=== PATIENT | male | born 1980 | race Caucasian/White ===

== ENCOUNTER → 2016-11-10 | Outpatient (CLI) | payer BC, MEDICAID ==
[~2016-11-10] MED LIST: AMOXICILLIN 50500 MG PO; AMOXICILLIN 8751 TAB PO; ASPIRIN 81M81 MG/TA2 PO; CEPHALEXIN500 M1 PO; CETIRIZINE PO; COREG 6.256.25 MG/TA PO; COREG12.5 MG PO; COREG25 MG PO; DEMADEX 20MG20 M1 PO; DOXYCYCLINE 10100 MG PO; FLEXERIL 1010 MG/TAB PO; FLEXERIL10 MG PO; LASIX 20MG TABL20 MG PO; LASIX 40MG TABL40 MG PO; LASIX40 MG PO; LISINOPRIL10 MG PO; LORTAB 5/500 501 TAB PO; NORCO 325 MG-51 TAB PO; NORCO 325 MG-7.1 TAB PO; PHENERGAN W/CO120 M1 PO; PRINIVIL10 MG PO; PRINIVIL20 MG PO; PRINIVIL5 MG PO; TYLENOL 325MG325 MG PO; VENTOLIN0.09 MG IH; ZANTAC 150MG T150 MG PO; ZANTAC PO; ZOFRAN 4MG T4 MG/TAB PO; [UNRECOGNIZED DRUG - OTHER]
[2016-11-10 10:45] LABS: BASO % 0.3 % (0.0-2.0); EOS # 0.4 (0.0-0.7); EOS % 4.6 % (0-4.0); GRAN # 6.3 (1.4-6.5); GRAN % 71.6 % (42.2-75.2); HEMATOCRIT 38.3 % (42.0-52.0); HEMOGLOBIN 12.4 g/dl (13.5-18.0); INR 2.4 (0.8-3.0); LYMPH # 1.4 (1.2-3.4); LYMPH % 15.8 % (20.0-51.0); MEAN CELL VOLUME 81 fl (80.0-100.0); MEAN CORPUSCULAR HEMOGLOBIN 26 pg (27.0-31.0); MEAN CORPUSCULAR HGB CONC 32 g/dl (33.0-37.0); MONO # 0.7 (0.1-0.6); MONO % 7.6 % (1.7-9.3); PLATELET COUNT 250 K/mm3 (130-400); PROTHROMBIN TIME 26.8 SECONDS (9.7-12.8); RED BLOOD COUNT 4.75 M/mm3 (4.20-5.60); WHITE BLOOD COUNT 8.7 K/mm3 (4.8-10.8)
[2016-11-10 10:50] LABS: CALCIUM 9.7 mg/dL (8.4-10.2); CREATININE, serum 1.22 mg/dL (0.66-1.25)
== END ==
LOC: COL.LAB 09:05
DX: I50.22 Chronic systolic (congestive) heart failure (principal)

== ENCOUNTER → 2016-11-17 | Outpatient (CLI) | payer BC, MEDICAID ==
[2016-11-17 12:55] LABS: BASO # 0.1 (0.0-0.2); BASO % 0.6 % (0.0-2.0); EOS # 0.3 (0.0-0.7); EOS % 3.1 % (0-4.0); GRAN # 6.6 (1.4-6.5); GRAN % 77.8 % (42.2-75.2); HEMATOCRIT 39.9 % (42.0-52.0); HEMOGLOBIN 13.1 g/dl (13.5-18.0); MEAN CELL VOLUME 80 fl (80.0-100.0); MEAN CORPUSCULAR HEMOGLOBIN 26 pg (27.0-31.0); MEAN CORPUSCULAR HGB CONC 33 g/dl (33.0-37.0); MEAN PLATELET VOLUME 10.4 fl (7.4-10.4); MONO # 0.5 (0.1-0.6); MONO % 6.1 % (1.7-9.3); PLATELET COUNT 255 K/mm3 (130-400); RED BLOOD COUNT 4.99 M/mm3 (4.20-5.60); REDCELL DISTRIBUTION WIDTH-CV 15.3 % (11.5-14.5); WHITE BLOOD COUNT 8.5 K/mm3 (4.8-10.8)
[2016-11-17 13:07] LABS: CALCIUM 9.7 mg/dL (8.4-10.2); CREATININE, serum 1.33 mg/dL (0.66-1.25); POTASSIUM 3.9 mmol/L (3.4-5.0)
[2016-11-17 13:09] LABS: PROTHROMBIN TIME 37.2 SECONDS (9.7-12.8)
[2016-11-17 13:38] LABS: INR 3.2 (0.8-3.0)
== END ==
LOC: COL.LAB 10:42
DX: I50.22 Chronic systolic (congestive) heart failure (principal)

== ENCOUNTER → 2016-12-01 | Outpatient (CLI) | payer BC, MEDICAID ==
[2016-12-01 13:09] LABS: BASO % 0.4 % (0.0-2.0); EOS # 0.3 (0.0-0.7); EOS % 3.1 % (0-4.0); GRAN # 6.6 (1.4-6.5); GRAN % 77.6 % (42.2-75.2); HEMATOCRIT 41.1 % (42.0-52.0); HEMOGLOBIN 13.3 g/dl (13.5-18.0); LYMPH # 1.1 (1.2-3.4); LYMPH % 12.6 % (20.0-51.0); MEAN CELL VOLUME 80 fl (80.0-100.0); MEAN CORPUSCULAR HEMOGLOBIN 26 pg (27.0-31.0); MEAN CORPUSCULAR HGB CONC 32 g/dl (33.0-37.0); MONO # 0.5 (0.1-0.6); MONO % 6.1 % (1.7-9.3); PLATELET COUNT 269 K/mm3 (130-400); RED BLOOD COUNT 5.14 M/mm3 (4.20-5.60); WHITE BLOOD COUNT 8.5 K/mm3 (4.8-10.8)
[2016-12-01 13:13] LABS: CALCIUM 9.5 mg/dL (8.4-10.2); CREATININE, serum 1.4 mg/dL (0.66-1.25); INR 1.9 (0.8-3.0); POTASSIUM 4.2 mmol/L (3.4-5.0); PROTHROMBIN TIME 21.7 SECONDS (9.7-12.8)
== END ==
LOC: COL.LAB 10:30
DX: I50.22 Chronic systolic (congestive) heart failure (principal)

== ENCOUNTER → 2016-12-08 | Outpatient (CLI) | payer BC, MEDICAID ==
[2016-12-08 10:58] LABS: BASO % 0.3 % (0.0-2.0); EOS # 0.2 (0.0-0.7); EOS % 1.6 % (0-4.0); GRAN # 9.9 (1.4-6.5); GRAN % 81.2 % (42.2-75.2); HEMATOCRIT 40.3 % (42.0-52.0); HEMOGLOBIN 13.3 g/dl (13.5-18.0); LYMPH # 1.2 (1.2-3.4); LYMPH % 9.5 % (20.0-51.0); MEAN CELL VOLUME 80 fl (80.0-100.0); MEAN CORPUSCULAR HEMOGLOBIN 27 pg (27.0-31.0); MEAN CORPUSCULAR HGB CONC 33 g/dl (33.0-37.0); MEAN PLATELET VOLUME 9.9 fl (7.4-10.4); MONO # 0.9 (0.1-0.6); MONO % 7.1 % (1.7-9.3); PLATELET COUNT 258 K/mm3 (130-400); RED BLOOD COUNT 5.02 M/mm3 (4.20-5.60); REDCELL DISTRIBUTION WIDTH-CV 13.4 % (11.5-14.5); WHITE BLOOD COUNT 12.2 K/mm3 (4.8-10.8)
[2016-12-08 11:00] LABS: INR 1.7 (0.8-3.0); PROTHROMBIN TIME 19.4 SECONDS (9.7-12.8)
[2016-12-08 11:05] LABS: CALCIUM 9.7 mg/dL (8.4-10.2); CREATININE, serum 1.4 mg/dL (0.66-1.25); POTASSIUM 3.4 mmol/L (3.4-5.0)
== END ==
LOC: COL.LAB 08:53
DX: I50.22 Chronic systolic (congestive) heart failure (principal)

== ENCOUNTER → 2016-12-15 | Outpatient (CLI) | payer BC, MEDICAID ==
[2016-12-15 11:03] LABS: BASO % 0.3 % (0.0-2.0); EOS # 0.2 (0.0-0.7); GRAN # 7.9 (1.4-6.5); GRAN % 79.3 % (42.2-75.2); HEMATOCRIT 37.5 % (42.0-52.0); HEMOGLOBIN 12.3 g/dl (13.5-18.0); LYMPH # 1.2 (1.2-3.4); LYMPH % 11.8 % (20.0-51.0); MEAN CELL VOLUME 80 fl (80.0-100.0); MEAN CORPUSCULAR HEMOGLOBIN 26 pg (27.0-31.0); MEAN CORPUSCULAR HGB CONC 33 g/dl (33.0-37.0); MEAN PLATELET VOLUME 9.3 fl (7.4-10.4); MONO # 0.6 (0.1-0.6); MONO % 6.3 % (1.7-9.3); PLATELET COUNT 255 K/mm3 (130-400); RED BLOOD COUNT 4.69 M/mm3 (4.20-5.60); REDCELL DISTRIBUTION WIDTH-CV 13.6 % (11.5-14.5); WHITE BLOOD COUNT 9.9 K/mm3 (4.8-10.8)
[2016-12-15 11:07] LABS: PROTHROMBIN TIME 22.6 SECONDS (9.7-12.8)
[2016-12-15 11:19] LABS: CREATININE, serum 1.09 mg/dL (0.66-1.25); POTASSIUM 3.9 mmol/L (3.4-5.0)
== END ==
LOC: COL.LAB 09:02
DX: I50.22 Chronic systolic (congestive) heart failure (principal)

== ENCOUNTER → 2016-12-22 | Outpatient (CLI) | payer BC, MEDICAID ==
[2016-12-22 10:53] LABS: CALCIUM 9.2 mg/dL (8.4-10.2); CREATININE, serum 1.04 mg/dL (0.66-1.25); POTASSIUM 3.9 mmol/L (3.4-5.0)
[2016-12-22 10:55] LABS: PROTHROMBIN TIME 22.3 SECONDS (9.7-12.8)
[2016-12-22 11:04] LABS: BASO % 0.3 % (0.0-2.0); EOS # 0.2 (0.0-0.7); EOS % 1.9 % (0-4.0); GRAN # 8.5 (1.4-6.5); GRAN % 81.7 % (42.2-75.2); HEMATOCRIT 39.1 % (42.0-52.0); LYMPH # 1.1 (1.2-3.4); LYMPH % 10.7 % (20.0-51.0); MEAN CELL VOLUME 80 fl (80.0-100.0); MEAN CORPUSCULAR HEMOGLOBIN 27 pg (27.0-31.0); MEAN CORPUSCULAR HGB CONC 33 g/dl (33.0-37.0); MEAN PLATELET VOLUME 9.5 fl (7.4-10.4); MONO # 0.5 (0.1-0.6); MONO % 5.1 % (1.7-9.3); PLATELET COUNT 249 K/mm3 (130-400); RED BLOOD COUNT 4.89 M/mm3 (4.20-5.60); REDCELL DISTRIBUTION WIDTH-CV 13.4 % (11.5-14.5); WHITE BLOOD COUNT 10.4 K/mm3 (4.8-10.8)
== END ==
LOC: COL.LAB 10:02
DX: I50.22 Chronic systolic (congestive) heart failure (principal)

== ENCOUNTER → 2016-12-29 | Outpatient (CLI) | payer BC, MEDICAID ==
[2016-12-29 09:22] LABS: INR 2.2 (0.8-3.0); PROTHROMBIN TIME 25.1 SECONDS (9.7-12.8)
[2016-12-29 09:28] LABS: BASO % 0.3 % (0.0-2.0); EOS # 0.2 (0.0-0.7); EOS % 1.8 % (0-4.0); GRAN % 83.6 % (42.2-75.2); HEMATOCRIT 40.9 % (42.0-52.0); HEMOGLOBIN 13.2 g/dl (13.5-18.0); LYMPH # 0.9 (1.2-3.4); LYMPH % 7.4 % (20.0-51.0); MEAN CELL VOLUME 80 fl (80.0-100.0); MEAN CORPUSCULAR HEMOGLOBIN 26 pg (27.0-31.0); MEAN CORPUSCULAR HGB CONC 32 g/dl (33.0-37.0); MEAN PLATELET VOLUME 9.6 fl (7.4-10.4); MONO # 0.8 (0.1-0.6); MONO % 6.6 % (1.7-9.3); PLATELET COUNT 286 K/mm3 (130-400); REDCELL DISTRIBUTION WIDTH-CV 13.3 % (11.5-14.5); WHITE BLOOD COUNT 11.9 K/mm3 (4.8-10.8)
[2016-12-29 09:40] LABS: CREATININE, serum 1.1 mg/dL (0.66-1.25); POTASSIUM 3.7 mmol/L (3.4-5.0)
== END ==
LOC: COL.LAB 08:51
DX: I50.22 Chronic systolic (congestive) heart failure (principal)

== ENCOUNTER 2017-01-02 16:23 | Outpatient (RCR) | payer BC, MEDICAID ==
[~2017-01-02 16:23] MED LIST changes: -DEMADEX 20MG20 M1 PO
[2017-01-27] MEDS ORDERED: NORCO 325 MG-51 TAB PO (00:46)
[2017-03-18] MEDS ORDERED: DEMADEX 20MG20 M1 PO (13:04)
== END 2017-02-01 | disposition home or self-care (01) ==
LOC: COL.CR
DX: I50.22 Chronic systolic (congestive) heart failure (principal); I42.9 Cardiomyopathy, unspecified; Z95.810 Presence of automatic (implantable) cardiac defibrillator; I21.3 ST elevation (STEMI) myocardial infarction of unspecified site

== ENCOUNTER 2017-01-26 21:07 | Emergency (ER) | payer BC, MEDICAID ==
[~2017-01-26] VITALS: Ht 185.4 cm; Wt 114.1 kg
[2017-01-26 21:09] VITALS: BP 121/69; TEMP 98.7
[2017-01-26 22:10] LABS: BASO % 0.3 % (0.0-2.0); EOS # 0.1 (0.0-0.7); EOS % 1.2 % (0-4.0); GRAN # 6.6 (1.4-6.5); GRAN % 75.8 % (42.2-75.2); LYMPH % 11.4 % (20.0-51.0); MEAN CELL VOLUME 79 fl (80.0-100.0); MEAN CORPUSCULAR HGB CONC 32 g/dl (33.0-37.0); MEAN PLATELET VOLUME 9.4 fl (7.4-10.4); MONO # 0.9 (0.1-0.6); MONO % 10.4 % (1.7-9.3); PLATELET COUNT 189 K/mm3 (130-400); WHITE BLOOD COUNT 8.7 K/mm3 (4.8-10.8)
[2017-01-26 22:24] LABS: HEMATOCRIT 35.6 % (42.0-52.0); HEMOGLOBIN 11.4 g/dl (13.5-18.0); MEAN CORPUSCULAR HEMOGLOBIN 25 pg (27.0-31.0)
[2017-01-26 22:27] LABS: INR 2.8 (0.8-3.0); PROTHROMBIN TIME 31.8 SECONDS (9.7-12.8)
[2017-01-26 22:30] LABS: PARTIAL THROMBOPLASTIN TIME 41.5 SECONDS (26.0-37.0)
[2017-01-26 22:44] LABS: ADJUSTED CALCIUM 9.2 mg/dL (8.4-10.2); ALBUMIN 3.5 gm/dL (3.5-5.0); BILIRUBIN,TOTAL 0.8 mg/dL (0.0-1.0); CALCIUM 8.8 mg/dL (8.4-10.2); CREATININE, serum 0.98 mg/dL (0.66-1.25); POTASSIUM 3.7 mmol/L (3.4-5.0); TOTAL PROTEIN 6.9 gm/dL (6.4-8.2)
[2017-01-27] MEDS ORDERED: NORCO 325 MG-51 TAB PO (00:46)
[2017-01-27 00:57] VITALS: PULSE 71
[2017-03-18] MEDS ORDERED: DEMADEX 20MG20 M1 PO (13:04)
== END 2017-01-27 01:01 | disposition home or self-care (01) ==
LOC: COL.ER 21:07
PROVIDERS: Emergency Medicine
DX: J02.9 Acute pharyngitis, unspecified (principal); R13.10 Dysphagia, unspecified; R59.0 Localized enlarged lymph nodes; I50.9 Heart failure, unspecified; I42.9 Cardiomyopathy, unspecified; Z76.82 Awaiting organ transplant status
CPT/HCPCS: J1170; Q9967

== ENCOUNTER 2017-07-15 12:26 | Outpatient (RCR) | payer MEDICAID ==
[~2017-07-15 12:26] MED LIST changes: +DEMADEX 20MG20 M1 PO
== END 2017-09-27 | disposition home or self-care (01) ==
LOC: COL.CR
DX: I42.8 Other cardiomyopathies (principal); I50.42 Chronic combined systolic (congestive) and diastolic (congestive) heart failure; E66.01 Morbid (severe) obesity due to excess calories; F41.8 Other specified anxiety disorders; G47.33 Obstructive sleep apnea (adult) (pediatric)

== ENCOUNTER → 2019-06-20 | Outpatient (CLI) | payer MEDICAID ==
[2019-06-20 09:24] LABS: CREATININE, serum 1.69 (0.66-1.25); POTASSIUM 3.3 mmol/L (3.4-5.0)
[2019-06-20 09:44] LABS: INR 1.8 (0.8-3.0); PROTHROMBIN TIME 21.6 SECONDS (9.7-12.8)
== END ==
LOC: COL.LAB 08:36
DX: I49.01 Ventricular fibrillation (principal); I27.20 Pulmonary hypertension, unspecified; Z95.810 Presence of automatic (implantable) cardiac defibrillator

== ENCOUNTER → 2019-06-24 | Outpatient (CLI) | payer MEDICAID ==
[2019-06-24 09:37] LABS: CREATININE, serum 1.74 (0.66-1.25); INR 1.8 (0.8-3.0); POTASSIUM 4.1 mmol/L (3.4-5.0); PROTHROMBIN TIME 21.2 SECONDS (9.7-12.8)
== END ==
LOC: COL.LAB 08:59
DX: I49.01 Ventricular fibrillation (principal); I27.20 Pulmonary hypertension, unspecified; Z95.810 Presence of automatic (implantable) cardiac defibrillator

== ENCOUNTER → 2019-07-04 | Outpatient (CLI) | payer MEDICAID ==
[2019-07-04 10:08] LABS: INR 2.3 (0.8-3.0); PROTHROMBIN TIME 27.1 SECONDS (9.7-12.8)
== END ==
LOC: COL.LAB 08:29
DX: I49.01 Ventricular fibrillation (principal); I27.20 Pulmonary hypertension, unspecified; Z95.810 Presence of automatic (implantable) cardiac defibrillator

== ENCOUNTER → 2019-07-18 | Outpatient (CLI) | payer MEDICAID ==
[2019-07-18 09:12] LABS: INR 3.1 (0.8-3.0); PROTHROMBIN TIME 37.6 SECONDS (9.7-12.8)
== END ==
LOC: COL.LAB 08:28
DX: I27.20 Pulmonary hypertension, unspecified (principal); I49.01 Ventricular fibrillation; Z95.810 Presence of automatic (implantable) cardiac defibrillator

== ENCOUNTER 2019-08-29 08:11 | Emergency (ER) | payer MEDICARE, MEDICAID ==
[~2019-08-29] VITALS: Ht 185.4 cm; Wt 172.7 kg
[2019-08-29 08:16] VITALS: BP 118/71; TEMP 98.6
[2019-08-29] MEDS ORDERED: PROAIR HFA0.09 MG/AC IH (08:23)
[2019-08-29] MEDS ORDERED: PACERONE400 MG PO (08:24)
[2019-08-29] MEDS ORDERED: CLARITIN 1010 MG/TAB (08:24)
[2019-08-29] MEDS ORDERED: BUMEX2 MG PO (08:26)
[2019-08-29] MEDS ORDERED: LANOXIN 0.120.125 MG PO (08:27)
[2019-08-29] MEDS ORDERED: NATURAL IRON65 MG (08:28)
[2019-08-29] MEDS ORDERED: INSPRA50 MG (08:28)
[2019-08-29] MEDS ORDERED: ZESTRIL 5MG5 MG PO (08:29)
[2019-08-29] MEDS ORDERED: JARDIANCE25 (08:29)
[2019-08-29] MEDS ORDERED: MEXITIL 150MG150 MG PO (08:30)
[2019-08-29] MEDS ORDERED: TOPROL XL 25MG25 MG PO (08:30)
[2019-08-29] MEDS ORDERED: MAG-OX 400400 MG/TAB PO (08:30)
[2019-08-29] MEDS ORDERED: OZEMPIC0.25 MG/0. SQ (08:31)
[2019-08-29] MEDS ORDERED: PROTONIX 40MG T40 MG PO (08:31)
[2019-08-29] MEDS ORDERED: MIRALAX PA17 GM/Dose PO (08:32)
[2019-08-29] MEDS ORDERED: K-DUR20 MEQ PO (08:32)
[2019-08-29] MEDS ORDERED: RT SPIRIVA18 MCG IH (08:33)
[2019-08-29] MEDS ORDERED: ZOLOFT 100MG100 MG PO (08:33)
[2019-08-29] MEDS ORDERED: DESYREL 100MG100 MG PO (08:33)
[2019-08-29] MEDS ORDERED: COUMADIN 5MG5 MG/TAB PO (08:34)
[2019-08-29] MEDS ORDERED: CLEOCIN HCL300 MG PO (10:28)
[2019-08-29] MEDS ORDERED: NORCO 325 MG-51 TAB PO (10:28)
[2019-08-29 11:15] VITALS: PULSE 61
== END 2019-08-29 11:15 | disposition home or self-care (01) ==
LOC: COL.ER 08:11
DX: K04.7 Periapical abscess without sinus (principal); I50.9 Heart failure, unspecified; Z87.891 Personal history of nicotine dependence; Z90.89 Acquired absence of other organs; Z79.01 Long term (current) use of anticoagulants
CPT/HCPCS: J2405; J3010

== ENCOUNTER → 2019-09-19 | Outpatient (CLI) | payer MEDICARE, MEDICAID ==
[~2019-09-19] MED LIST changes: +BUMEX2 MG PO; +CLARITIN 1010 MG/TAB; +CLEOCIN HCL300 MG PO; +COUMADIN 5MG5 MG/TAB PO; +DESYREL 100MG100 MG PO; +INSPRA50 MG; +JARDIANCE25; +K-DUR20 MEQ PO; +LANOXIN 0.120.125 MG PO; +MAG-OX 400400 MG/TAB PO; +MEXITIL 150MG150 MG PO; +MIRALAX PA17 GM/Dose PO; +NATURAL IRON65 MG; +OZEMPIC0.25 MG/0. SQ; +PACERONE400 MG PO; +PROAIR HFA0.09 MG/AC IH; +PROTONIX 40MG T40 MG PO; +RT SPIRIVA18 MCG IH; +TOPROL XL 25MG25 MG PO; +ZESTRIL 5MG5 MG PO; +ZOLOFT 100MG100 MG PO
[2019-09-19 14:11] LABS: INR 6.2 (0.8-3.0); PROTHROMBIN TIME 77.2 SECONDS (9.7-12.8)
== END ==
LOC: COL.LAB 08:23
DX: I49.01 Ventricular fibrillation (principal); I27.20 Pulmonary hypertension, unspecified; Z95.810 Presence of automatic (implantable) cardiac defibrillator

== ENCOUNTER → 2019-09-20 | Outpatient (CLI) | payer MEDICARE, MEDICAID ==
[2019-09-20 10:38] LABS: PROTHROMBIN TIME 73.5 SECONDS (9.7-12.8)
== END ==
LOC: COL.LAB 09:40
DX: I82.712 Chronic embolism and thrombosis of superficial veins of left upper extremity (principal); I42.8 Other cardiomyopathies; I49.01 Ventricular fibrillation; E66.01 Morbid (severe) obesity due to excess calories; Z68.43 Body mass index [BMI] 50.0-59.9, adult; I27.20 Pulmonary hypertension, unspecified; Z95.810 Presence of automatic (implantable) cardiac defibrillator

== ENCOUNTER → 2019-09-21 | Outpatient (CLI) | payer MEDICARE, MEDICAID ==
[2019-09-21 09:15] LABS: INR 4.7 (0.8-3.0)
[2019-09-21 09:42] LABS: PROTHROMBIN TIME 58.1 SECONDS (9.7-12.8)
== END ==
LOC: COL.LAB 08:41
DX: I82.712 Chronic embolism and thrombosis of superficial veins of left upper extremity (principal); I42.8 Other cardiomyopathies; Z79.01 Long term (current) use of anticoagulants

== ENCOUNTER → 2019-09-23 | Outpatient (CLI) | payer MEDICARE, MEDICAID ==
[2019-09-23 08:41] LABS: INR 2.2 (0.8-3.0); PROTHROMBIN TIME 26.7 SECONDS (9.7-12.8)
== END ==
LOC: COL.LAB 08:06
PROVIDERS: Internal Medicine Cardiovascular Disease
DX: I42.8 Other cardiomyopathies (principal); I82.712 Chronic embolism and thrombosis of superficial veins of left upper extremity

== ENCOUNTER → 2019-10-07 | Outpatient (CLI) | payer MEDICARE, MEDICAID ==
[2019-10-07 09:08] LABS: INR 4.9 (0.8-3.0)
== END ==
LOC: COL.LAB 08:39
PROVIDERS: Internal Medicine Cardiovascular Disease
DX: I49.01 Ventricular fibrillation (principal); Z79.01 Long term (current) use of anticoagulants

== ENCOUNTER → 2019-10-14 | Outpatient (CLI) | payer MEDICARE, MEDICAID ==
[2019-10-14 08:55] LABS: INR 3.2 (0.8-3.0); PROTHROMBIN TIME 38.8 SECONDS (9.7-12.8)
[2019-10-14 09:09] LABS: CALCIUM 9.1 mg/dL (8.4-10.2); CREATININE, serum 1.68 (0.66-1.25); MAGNESIUM 2.4 mg/dL (1.6-2.3); POTASSIUM 3.9 mmol/L (3.4-5.0)
== END ==
LOC: COL.LAB 08:21
PROVIDERS: Internal Medicine Cardiovascular Disease
DX: I49.01 Ventricular fibrillation (principal); Z79.01 Long term (current) use of anticoagulants

== ENCOUNTER → 2019-10-24 | Outpatient (CLI) | payer MEDICARE, MEDICAID ==
[2019-10-24 09:03] LABS: INR 4.3 (0.8-3.0)
== END ==
LOC: COL.LAB 08:33
PROVIDERS: Internal Medicine Cardiovascular Disease
DX: I49.01 Ventricular fibrillation (principal); Z79.01 Long term (current) use of anticoagulants

== ENCOUNTER → 2019-11-21 | Outpatient (CLI) | payer MEDICARE, MEDICAID ==
[2019-11-21 11:41] LABS: INR 2.9 (0.8-3.0); PROTHROMBIN TIME 34.7 SECONDS (9.7-12.8)
[2019-11-21 11:44] LABS: CALCIUM 8.9 mg/dL (8.4-10.2); CREATININE, serum 1.84 (0.66-1.25); MAGNESIUM 2.5 mg/dL (1.6-2.3); POTASSIUM 4.3 mmol/L (3.4-5.0)
== END ==
LOC: COL.LAB 11:13
PROVIDERS: Family Medicine
DX: I42.8 Other cardiomyopathies (principal); I50.42 Chronic combined systolic (congestive) and diastolic (congestive) heart failure; Z79.01 Long term (current) use of anticoagulants

== ENCOUNTER → 2020-01-24 | Outpatient (CLI) | payer MEDICARE, MEDICAID ==
[2020-01-24 08:59] LABS: INR 2.2 (0.8-3.0); PROTHROMBIN TIME 24.7 SECONDS (9.7-12.8)
[2020-01-24 09:44] LABS: CALCIUM 8.9 mg/dL (8.4-10.2); CREATININE, serum 1.93 (0.66-1.25); POTASSIUM 4.2 mmol/L (3.4-5.0)
== END ==
LOC: COL.LAB 08:10
PROVIDERS: Internal Medicine Cardiovascular Disease
DX: I50.42 Chronic combined systolic (congestive) and diastolic (congestive) heart failure (principal)

== ENCOUNTER → 2020-02-29 | Outpatient (CLI) | payer MEDICARE, MEDICAID ==
[2020-02-29 07:58] LABS: CALCIUM 8.9 mg/dL (8.4-10.2); CREATININE, serum 1.89 (0.66-1.25); MAGNESIUM 2.4 mg/dL (1.6-2.3); POTASSIUM 3.9 mmol/L (3.4-5.0)
== END ==
LOC: COL.LAB 07:17 → ZCOL.LAB 07:17
PROVIDERS: Family Medicine
DX: I50.42 Chronic combined systolic (congestive) and diastolic (congestive) heart failure (principal); I42.8 Other cardiomyopathies; Z79.01 Long term (current) use of anticoagulants

== ENCOUNTER → 2020-04-19 | Outpatient (CLI) | payer MEDICARE, MEDICAID ==
[~2020-04-19] MED LIST changes: -CLARITIN 1010 MG/TAB; +CLARITIN 1010 MG/TAB PO; +COLCRYS0.6 MG PO; -INSPRA50 MG; +INSPRA50 MG PO; -JARDIANCE25; +JARDIANCE25 PO
[2020-04-19 08:40] LABS: ALBUMIN 4.4 gm/dL (3.5-5.0); BILIRUBIN,TOTAL 1.7 mg/dL (0.0-1.0); CALCIUM 8.7 mg/dL (8.4-10.2); CREATININE, serum 1.8 (0.66-1.25); POTASSIUM 3.7 mmol/L (3.4-5.0)
[2020-04-19 08:41] LABS: INR 2.1 (0.8-3.0); PROTHROMBIN TIME 23.1 SECONDS (9.7-12.8)
[2020-04-19 09:10] LABS: THYROID STIMULATING HORMONE 5.66 uIU/mL (0.465-4.680)
== END ==
LOC: COL.LAB
DX: I42.8 Other cardiomyopathies (principal)

== ENCOUNTER 2020-04-21 09:04 | Emergency (ER) | payer MEDICARE, MEDICAID ==
[~2020-04-21] VITALS: Ht 185.4 cm; Wt 172.7 kg
[~2020-04-21 09:04] MED LIST changes: -COLCRYS0.6 MG PO
[2020-04-21 09:06] VITALS: BP 110/75; TEMP 97.6
[2020-04-21] MEDS ORDERED: OZEMPIC0.25 MG/0. SQ (09:38)
[2020-04-21 10:29] LABS: BASO % 0.3 % (0.0-2.0); EOS # 0.2 (0.0-0.7); EOS % 2.3 % (0-4.0); GRAN # 8.3 (1.4-6.5); GRAN % 80.2 % (42.2-75.2); HEMATOCRIT 43.3 % (42.0-52.0); HEMOGLOBIN 13.8 g/dl (13.5-18.0); LYMPH % 9.4 % (20.0-51.0); MEAN CELL VOLUME 84 fl (80.0-100.0); MEAN CORPUSCULAR HEMOGLOBIN 27 pg (27.0-31.0); MEAN CORPUSCULAR HGB CONC 32 g/dl (33.0-37.0); MONO # 0.8 (0.1-0.6); MONO % 7.4 % (1.7-9.3); PLATELET COUNT 238 K/mm3 (130-400); RED BLOOD COUNT 5.13 M/mm3 (4.20-5.60); REDCELL DISTRIBUTION WIDTH-CV 15.1 % (11.5-14.5)
[2020-04-21 10:37] LABS: ALBUMIN 3.8 gm/dL (3.5-5.0); BILIRUBIN,TOTAL 1.3 mg/dL (0.0-1.0); CALCIUM 8.2 mg/dL (8.4-10.2); CREATININE, serum 1.76 (0.66-1.25); POTASSIUM 3.8 mmol/L (3.4-5.0); TOTAL PROTEIN 7.1 gm/dL (6.4-8.2); URIC ACID 10.1 mg/dL (3.5-8.5)
[2020-04-21] MEDS ORDERED: COLCRYS0.6 MG PO (10:53)
[2020-04-21] MEDS ORDERED: NORCO 325 MG-7.1 TAB PO (10:53)
[2020-04-21 11:03] VITALS: PULSE 60
== END 2020-04-21 11:03 | disposition home or self-care (01) ==
LOC: COL.ER 09:04
PROVIDERS: Physician Assistant
DX: M79.671 Pain in right foot (principal); M79.89 Other specified soft tissue disorders; E11.9 Type 2 diabetes mellitus without complications; I11.0 Hypertensive heart disease with heart failure; I50.9 Heart failure, unspecified; E66.01 Morbid (severe) obesity due to excess calories; Z87.891 Personal history of nicotine dependence; Z79.84 Long term (current) use of oral hypoglycemic drugs; E78.5 Hyperlipidemia, unspecified; Z79.01 Long term (current) use of anticoagulants; Z68.43 Body mass index [BMI] 50.0-59.9, adult

== ENCOUNTER 2020-05-19 21:08 | Emergency (ER) | payer MEDICARE, MEDICAID ==
[~2020-05-19] VITALS: Ht 185.4 cm; Wt 172.7 kg
[~2020-05-19 21:08] MED LIST changes: +COLCRYS0.6 MG PO
[2020-05-19 23:18] LABS: COLLECTION METHOD CLEAN CATCH
[2020-05-19 23:21] LABS: BASO % 0.5 % (0.0-2.0); EOS % 0.2 % (0-4.0); GRAN # 6.8 (1.4-6.5); HEMATOCRIT 46.3 % (42.0-52.0); HEMOGLOBIN 14.7 g/dl (13.5-18.0); LYMPH # 0.7 (1.2-3.4); LYMPH % 8.3 % (20.0-51.0); MEAN CELL VOLUME 84 fl (80.0-100.0); MEAN CORPUSCULAR HEMOGLOBIN 27 pg (27.0-31.0); MEAN CORPUSCULAR HGB CONC 32 g/dl (33.0-37.0); MEAN PLATELET VOLUME 9.5 fl (7.4-10.4); MONO # 0.8 (0.1-0.6); MONO % 9.4 % (1.7-9.3); PLATELET COUNT 239 K/mm3 (130-400); RED BLOOD COUNT 5.49 M/mm3 (4.20-5.60); REDCELL DISTRIBUTION WIDTH-CV 14.9 % (11.5-14.5)
[2020-05-19 23:24] LABS: MUCOUS Present /lpf; PH 6 (5-8); SQUAMOUS EPITHELIAL None Seen /hpf; URINE APPEARANCE Clear; URINE BACTERIA None Seen /hpf; URINE BILIRUBIN Negative (NEGATIVE); URINE BLOOD Negative (NEGATIVE); URINE COLOR Yellow; URINE GLUCOSE 3+ (NEGATIVE); URINE KETONE Negative (NEGATIVE); URINE LEUKOCYTE ESTERASE Negative (NEGATIVE); URINE NITRATE Negative (NEGATIVE); URINE PROTEIN(semi-quant) Negative (NEGATIVE); URINE RBC None Seen /hpf; URINE UROBILINOGEN Negative (NEGATIVE)
[2020-05-19 23:27] LABS: INR 2.6 (0.8-3.0); PROTHROMBIN TIME 29.6 SECONDS (9.7-12.8)
[2020-05-19 23:31] LABS: ALBUMIN 4.1 gm/dL (3.5-5.0); BILIRUBIN,TOTAL 1.8 mg/dL (0.0-1.0); C-REACTIVE PROTEIN 5.1 mg/dL (0.0-0.9); CALCIUM 8.3 mg/dL (8.4-10.2); CREATININE, serum 1.75 (0.66-1.25); POTASSIUM 3.8 mmol/L (3.4-5.0); TOTAL PROTEIN 7.6 gm/dL (6.4-8.2)
[2020-05-20 02:05] VITALS: BP 110/66; PULSE 80; TEMP 98.5
== END 2020-05-20 02:03 | disposition home or self-care (01) ==
LOC: COL.ER 21:08
PROVIDERS: Nurse Practitioner Primary Care
DX: I50.9 Heart failure, unspecified (principal); I11.0 Hypertensive heart disease with heart failure; E11.9 Type 2 diabetes mellitus without complications; F41.9 Anxiety disorder, unspecified; F32.9 Major depressive disorder, single episode, unspecified; K21.9 Gastro-esophageal reflux disease without esophagitis; J45.909 Unspecified asthma, uncomplicated; Z20.828 Contact with and (suspected) exposure to other viral communicable diseases; Z95.0 Presence of cardiac pacemaker; Z87.891 Personal history of nicotine dependence; Z90.89 Acquired absence of other organs; Z88.3 Allergy status to other anti-infective agents; Z79.01 Long term (current) use of anticoagulants; Z79.4 Long term (current) use of insulin
CPT/HCPCS: Q9967

== ENCOUNTER → 2020-07-27 | Outpatient (CLI) | payer MEDICARE, MEDICAID ==
[2020-07-27 09:43] LABS: INR 4.2 (0.8-3.0)
[2020-07-27 09:52] LABS: CALCIUM 8.7 mg/dL (8.4-10.2); CREATININE, serum 1.82 (0.66-1.25); MAGNESIUM 2.3 mg/dL (1.6-2.3); POTASSIUM 3.9 mmol/L (3.4-5.0)
[2020-07-27 10:44] LABS: PROTHROMBIN TIME 47.4 SECONDS (9.7-12.8)
== END ==
LOC: COL.LAB 08:47
DX: I42.8 Other cardiomyopathies (principal)

== ENCOUNTER → 2020-08-16 | Outpatient (CLI) | payer MEDICARE, MEDICAID ==
[2020-08-16 09:00] LABS: INR 2.5 (0.8-3.0)
[2020-08-16 09:12] LABS: CALCIUM 8.7 mg/dL (8.4-10.2); CREATININE, serum 2.1 (0.66-1.25); MAGNESIUM 2.6 mg/dL (1.6-2.3)
== END ==
LOC: COL.LAB 08:25
PROVIDERS: Internal Medicine Cardiovascular Disease
DX: I42.8 Other cardiomyopathies (principal); I49.01 Ventricular fibrillation; Z79.01 Long term (current) use of anticoagulants

== ENCOUNTER 2020-09-30 14:33 | Inpatient (IN) | payer MEDICARE, MEDICAID ==
[~2020-09-30] VITALS: Ht 185.4 cm; Wt 168.2 kg
[~2020-09-30 14:33] MED LIST changes: +JARDIANCE10 PO; -JARDIANCE25 PO; +OZEMPIC1 MG/0.75 SQ
[2020-09-30 15:54] LABS: BASO % 0.4 % (0.0-2.0); EOS % 0.4 % (0-4.0); GRAN # 9.9 (1.4-6.5); GRAN % 86.3 % (42.2-75.2); HEMATOCRIT 43.4 % (42.0-52.0); HEMOGLOBIN 13.4 g/dl (13.5-18.0); LYMPH # 0.6 (1.2-3.4); LYMPH % 5.3 % (20.0-51.0); MEAN CELL VOLUME 86 fl (80.0-100.0); MEAN CORPUSCULAR HEMOGLOBIN 26 pg (27.0-31.0); MEAN CORPUSCULAR HGB CONC 31 g/dl (33.0-37.0); MEAN PLATELET VOLUME 9.8 fl (7.4-10.4); MONO # 0.8 (0.1-0.6); MONO % 7.3 % (1.7-9.3); PLATELET COUNT 467 K/mm3 (130-400); RED BLOOD COUNT 5.07 M/mm3 (4.20-5.60); REDCELL DISTRIBUTION WIDTH-CV 16.9 % (11.5-14.5)
[2020-09-30 16:15] LABS: ALANINE AMINOTRANSFERASE 33 U/L (4-49); ALBUMIN 3.3 gm/dL (3.5-5.0); ALKALINE PHOSPHATASE 111 U/L (50-136); ANION GAP 9 mmol/L (7-16); AST,SGOT 37 U/L (15-37); BILIRUBIN,TOTAL 1.9 mg/dL (0.0-1.0); BLOOD UREA NITROGEN 26 mg/dL (9-20); CALCIUM 8.5 mg/dL (8.4-10.2); CARBON DIOXIDE 29 mmol/L (22-30); CHLORIDE 100 mmol/L (98-107); CREATININE, serum 1.57 (0.66-1.25); GLUCOSE 126 mg/dL (74-106); POTASSIUM 4.5 mmol/L (3.4-5.0); SODIUM 137 mmol/L (137-145); TOTAL PROTEIN 7.2 gm/dL (6.4-8.2)
[2020-09-30 16:26] LABS: C-REACTIVE PROTEIN 18.5 mg/dL (0.0-0.9); TROPONIN-I < 0.012 ng/mL (0.000-0.035)
[2020-09-30 17:36] LABS: INR 1.9 (0.8-3.0); PROTHROMBIN TIME 21.4 SECONDS (9.7-12.8)
[2020-09-30 18:15] LABS: COLLECTION METHOD CLEAN CATCH
[2020-09-30] MEDS ORDERED: LANCETS MC (18:19)
[2020-09-30 18:47] LABS: PH 6 (5-8); SQUAMOUS EPITHELIAL 0-2 /hpf; URINE APPEARANCE Clear; URINE BACTERIA None Seen /hpf; URINE BILIRUBIN Negative (NEGATIVE); URINE BLOOD Negative (NEGATIVE); URINE COLOR Yellow; URINE GLUCOSE 3+ (NEGATIVE); URINE KETONE Negative (NEGATIVE); URINE LEUKOCYTE ESTERASE Negative (NEGATIVE); URINE NITRATE Negative (NEGATIVE); URINE PROTEIN(semi-quant) Negative (NEGATIVE); URINE RBC 0-2 /hpf; URINE UROBILINOGEN Negative (NEGATIVE)
[2020-09-30 20:16] VITALS: BP 122/72; PULSE 78; TEMP 97.4
--- NOTE | 2020-09-30 20:58 | NUR ---
PATIENT ARRIVED TO FLOOR VIA WHEELCHAIR FROM THE ED. PATIENT ALERT AND ORIENTED AND ON 2L NC. PATIENT ORIENTED TO ROOM. PATIENT REPORTED PAIN IN GROIN AREA. NABIL WOODARD NOTIFIED.
[2020-10-01] VITALS (9 sets, daily range): BP systolic 101–140; BP diastolic 70–98; PULSE 50–86; TEMP 97.3–98.8
[2020-10-01 06:51] LABS: BASO % 0.2 % (0.0-2.0); EOS # 0.1 (0.0-0.7); EOS % 0.9 % (0-4.0); GRAN # 7.9 (1.4-6.5); GRAN % 83.8 % (42.2-75.2); HEMATOCRIT 42.5 % (42.0-52.0); HEMOGLOBIN 13.1 g/dl (13.5-18.0); LYMPH # 0.6 (1.2-3.4); LYMPH % 6.2 % (20.0-51.0); MEAN CELL VOLUME 86 fl (80.0-100.0); MEAN CORPUSCULAR HEMOGLOBIN 27 pg (27.0-31.0); MEAN CORPUSCULAR HGB CONC 31 g/dl (33.0-37.0); MEAN PLATELET VOLUME 9.8 fl (7.4-10.4); MONO # 0.8 (0.1-0.6); MONO % 8.6 % (1.7-9.3); PLATELET COUNT 375 K/mm3 (130-400); RED BLOOD COUNT 4.94 M/mm3 (4.20-5.60)
[2020-10-01 07:05] LABS: ALBUMIN 3.2 gm/dL (3.5-5.0); BILIRUBIN,TOTAL 1.7 mg/dL (0.0-1.0); CREATININE, serum 1.43 (0.66-1.25); MAGNESIUM 2.8 mg/dL (1.6-2.3); POTASSIUM 3.8 mmol/L (3.4-5.0)
--- NOTE | 2020-10-01 08:00 | NUR ---
PATIENT IS A&O. VSS WITH TELE INPLACE. NO C/O N/V. AM BS IS 111, NO SSI REQUIRED. BREAKFAST TRAY AT BEDSIDE. PATIENT TOLERATING AHA/ADA DIET. AM MEDS GIVEN. HEAD TO TOE ASSESSMENT COMPLETE. NOTED DEMINISHED LUNGS SOUNDS. PATIENT HAVING PRODUCTIVE PINK-TINGED SPUTUM, CULTURE SENT. BLOOD CULTURES PENDING. PATIENT REQUIRING 6L TO KEEP SATS IN 90'S. PATIENT IS OBESE AND HAS EXTENSIVE HX INCLUDING CHF, CARDIOMYOPATHY, V-FIBB, DVT & PACER. PATIENT ON CHRONIC COUMADIN. AM LAB PENDING. CARDIOLOGY CONSULTED.
--- NOTE | 2020-10-01 09:36 | NUR ---
Initial visit; Patient thanked Manager Of Disaster Recovery for looking in on him and offering God's blessings and asked that Manager Of Disaster Recovery keep him in her prayers.
[2020-10-01 09:44] LABS: PROTHROMBIN TIME 129.8 SECONDS (9.7-12.8)
[2020-10-01 09:45] LABS: INR 11.3 (0.8-3.0)
--- NOTE | 2020-10-01 09:45 | NUR ---
ECHO AT BEDSIDE.
--- NOTE | 2020-10-01 11:00 | NUR ---
DR.KATZ HOPKINS.
[2020-10-01 12:55] LABS: HEMATOCRIT 44.7 % (42.0-52.0); HEMOGLOBIN 13.8 g/dl (13.5-18.0)
--- NOTE | 2020-10-01 13:00 | NUR ---
COVID-SWAB COMPETED PER OLDERS. PATIENT MOVED TO COVID UNIT WITH ISOLATION PRECAUTIONS INPLACE.
--- NOTE | 2020-10-01 13:30 | NUR ---
LAB CALLED WITH CRITICAL INR OF 12.5. ATTEMPTED TO NOTIFY HOSPIATLIST, NO ANSWER.
--- NOTE | 2020-10-01 13:49 | NUR ---
Circulation Man attempted to contact patient by room phone and cell phone as he is a PUI for COVID at this time. Patient did not answer so SW contacted his , Donna (ph#[phone]) to complete initial intake. Per Donna, patient lives in [place] with his . Donna is not sure who patient's primary care physician is as patient sees so many doctors. Dr. Pitt is listed as patient's PCP. Patient obtains medications from [facility] in [place] with no difficulties. Donna reports patient has a home base for his defibrillator and no other DME. Patient does not normally require oxygen but is currently on six liters. Patient is normally independent with ADLS and plan is to return home. Donna isn't sure if patient has ever done DPOA-[facility] and there is nothing in EMR. ARIELLE will continue to follow for discharge needs.
--- NOTE | 2020-10-01 13:50 | NUR ---
HOSPITALIST NOTIFIED OF REPEAT INR. CALLED PATIENT IN ROOM. PATIENT IS NOW ON ISOLATION FOR PENDING COVID SWAB. CXR WAS REPORTED TO LOOK SUSPICIOUS BY THE RADIOLOGIST. PATIENT CURRENTLY ON 6L OF OXYGEN, NOTED DYSPNEA AT REST AND STILL COUGHING UP BLOOD-TINGED SPUTUM.
[2020-10-01 13:54] LABS: PROTHROMBIN TIME 143.4 SECONDS (9.7-12.8)
[2020-10-01 13:55] LABS: INR 12.5 (0.8-3.0)
--- NOTE | 2020-10-01 15:00 | NUR ---
PATIENT STILL COUGHING A LOT AND STILL WITH PRODUCTIVE PINK-TINGED SPUTUM. STARTED SECOND IV SITE INTO LEFT WRIST. IV BUMEX INFUSING INTO RIGHT AC IV VIA PUMP. OXYGEN AT 6L PER NC. COVID SWAB SENT EARLIER TODAY, SEND OUT.
--- NOTE | 2020-10-01 15:30 | NUR ---
ATTEMPTED TO CALL HOSPITALIST REGARDING FFP. AWAITING RETURN CALL
--- NOTE | 2020-10-01 16:00 | NUR ---
FFP NOW READY. STARTED FFP PER ORDERS.
--- NOTE | 2020-10-01 18:45 | NUR ---
CALLED REPORT TO [facility] FOR[employer] TE[employer] PROFESSOR TO CALL WHEN PATIENT LEAVES VIA EMS.
--- NOTE | 2020-10-01 19:54 | NUR ---
Patient left via EMS to transfer to [facility] on in [place], [place]. Patient V/S stable, A&O x'4, on 6L NC. Transfer packet given to EMS. Previous shift RN Ludy called [facility] with report. This nurse called [facility] to report patient was in route.
--- NOTE | 2020-10-02 11:18 | NUR ---
Patient was transferred to [facility] in [place].
== END 2020-10-01 19:55 | disposition short-term general hospital (02) | DRG 291 ==
LOC: COL.ER 14:33 → MEDICAL 17:45
PROVIDERS: Nurse Practitioner; Physician Assistant; Student in an Organized Health Care Education/Training Program; ADMIT Family Medicine
DX: I13.0 Hypertensive heart and chronic kidney disease with heart failure and stage 1 through stage 4 chronic kidney disease, or unspecified chronic kidney disease (principal); I50.23 Acute on chronic systolic (congestive) heart failure; J18.9 Pneumonia, unspecified organism; J96.01 Acute respiratory failure with hypoxia; Z68.43 Body mass index [BMI] 50.0-59.9, adult; R04.2 Hemoptysis; I42.8 Other cardiomyopathies; K59.00 Constipation, unspecified; D47.3 Essential (hemorrhagic) thrombocythemia; I95.9 Hypotension, unspecified; J45.909 Unspecified asthma, uncomplicated; N18.30 Chronic kidney disease, stage 3 unspecified; E11.22 Type 2 diabetes mellitus with diabetic chronic kidney disease; R04.0 Epistaxis; R79.1 Abnormal coagulation profile; T45.515A Adverse effect of anticoagulants, initial encounter; K21.9 Gastro-esophageal reflux disease without esophagitis; F32.9 Major depressive disorder, single episode, unspecified; E66.01 Morbid (severe) obesity due to excess calories; M10.9 Gout, unspecified; Z20.822 Contact with and (suspected) exposure to COVID-19; Z79.01 Long term (current) use of anticoagulants; Z95.810 Presence of automatic (implantable) cardiac defibrillator; Z87.891 Personal history of nicotine dependence
CPT/HCPCS: 99223-AI; 99233-AI; J0696; J1100; J1940; J3430

== ENCOUNTER → 2020-11-06 | Outpatient (CLI) | payer MEDICARE, MEDICAID ==
[~2020-11-06] MED LIST changes: +ASPIRIN E.C. 8181 MG PO; +LANCETS MC; +LIDODERM 5% PATC1 EA TP; +TYLENOL 500MG500 MG PO
[2020-11-06 08:31] LABS: CALCIUM 8.8 mg/dL (8.4-10.2); CREATININE, serum 1.92 (0.66-1.25); POTASSIUM 3.8 mmol/L (3.4-5.0); PROTHROMBIN TIME 11.5 SECONDS (9.7-12.8)
== END ==
LOC: COL.LAB 07:52
DX: I49.01 Ventricular fibrillation (principal); Z79.01 Long term (current) use of anticoagulants

== ENCOUNTER → 2020-11-14 | Outpatient (CLI) | payer MEDICARE, MEDICAID ==
[2020-11-14 09:24] LABS: CALCIUM 8.8 mg/dL (8.4-10.2); CREATININE, serum 1.5 (0.66-1.25); MAGNESIUM 2.5 mg/dL (1.6-2.3); POTASSIUM 3.5 mmol/L (3.4-5.0)
[2020-11-14 13:05] LABS: INR 1.6 (0.8-3.0); PROTHROMBIN TIME 17.8 SECONDS (9.7-12.8)
== END ==
LOC: COL.LAB 08:23
PROVIDERS: Internal Medicine Cardiovascular Disease
DX: I50.42 Chronic combined systolic (congestive) and diastolic (congestive) heart failure (principal); I42.8 Other cardiomyopathies

== ENCOUNTER → 2020-11-27 | Outpatient (CLI) | payer MEDICARE, MEDICAID ==
[2020-11-27 09:32] LABS: CALCIUM 8.8 mg/dL (8.4-10.2); CREATININE, serum 1.68 (0.66-1.25); MAGNESIUM 2.4 mg/dL (1.6-2.3); POTASSIUM 3.5 mmol/L (3.4-5.0)
[2020-11-27 09:34] LABS: INR 2.4 (0.8-3.0); PROTHROMBIN TIME 26.7 SECONDS (9.7-12.8)
== END ==
LOC: COL.LAB 08:29
DX: I50.42 Chronic combined systolic (congestive) and diastolic (congestive) heart failure (principal); I42.8 Other cardiomyopathies; E11.59 Type 2 diabetes mellitus with other circulatory complications; E66.01 Morbid (severe) obesity due to excess calories; Z86.79 Personal history of other diseases of the circulatory system; Z95.810 Presence of automatic (implantable) cardiac defibrillator; Z79.01 Long term (current) use of anticoagulants; Z79.899 Other long term (current) drug therapy

== ENCOUNTER → 2020-12-25 | Outpatient (CLI) | payer MEDICARE, MEDICAID ==
[2020-12-25 08:56] LABS: INR 2.6 (0.8-3.0); PROTHROMBIN TIME 29.4 SECONDS (9.7-12.8)
[2020-12-25 09:05] LABS: CALCIUM 8.9 mg/dL (8.4-10.2); CREATININE, serum 2.18 (0.66-1.25); MAGNESIUM 2.6 mg/dL (1.6-2.3)
== END ==
LOC: COL.LAB 07:48
DX: I50.42 Chronic combined systolic (congestive) and diastolic (congestive) heart failure (principal); E11.59 Type 2 diabetes mellitus with other circulatory complications; E66.01 Morbid (severe) obesity due to excess calories; I42.8 Other cardiomyopathies; Z79.899 Other long term (current) drug therapy; Z95.810 Presence of automatic (implantable) cardiac defibrillator; Z86.79 Personal history of other diseases of the circulatory system; Z79.01 Long term (current) use of anticoagulants

== ENCOUNTER → 2021-01-15 | Outpatient (CLI) | payer MEDICARE, MEDICAID ==
[2021-01-15 08:40] LABS: CALCIUM 9.2 mg/dL (8.4-10.2); CREATININE, serum 2.67 (0.66-1.25); POTASSIUM 3.7 mmol/L (3.4-5.0)
== END ==
LOC: COL.LAB 08:01
DX: I50.42 Chronic combined systolic (congestive) and diastolic (congestive) heart failure (principal); N18.31 Chronic kidney disease, stage 3a

== ENCOUNTER → 2021-01-18 | Outpatient (CLI) | payer MEDICARE, MEDICAID ==
[2021-01-18 09:08] LABS: CREATININE, serum 1.87 (0.66-1.25); POTASSIUM 3.9 mmol/L (3.4-5.0)
== END ==
LOC: COL.LAB 08:19
DX: N18.31 Chronic kidney disease, stage 3a (principal); I42.8 Other cardiomyopathies

== ENCOUNTER → 2021-01-23 | Outpatient (CLI) | payer MEDICARE, MEDICAID | LOC: COL.LAB 08:15 | DX: N18.31 Chronic kidney disease, stage 3a (principal); I42.8 Other cardiomyopathies ==

== ENCOUNTER → 2021-01-30 | Outpatient (CLI) | payer MEDICARE, MEDICAID ==
[2021-01-30 09:04] LABS: CALCIUM 8.5 mg/dL (8.4-10.2); CREATININE, serum 1.4 (0.66-1.25); POTASSIUM 3.6 mmol/L (3.4-5.0)
== END ==
LOC: COL.LAB 08:01
DX: N18.31 Chronic kidney disease, stage 3a (principal); I42.8 Other cardiomyopathies

== ENCOUNTER → 2021-02-05 | Outpatient (CLI) | payer MEDICARE, MEDICAID ==
[2021-02-05 09:04] LABS: CALCIUM 8.8 mg/dL (8.4-10.2); CREATININE, serum 1.39 (0.66-1.25)
== END ==
LOC: COL.LAB 08:00
PROVIDERS: Family Medicine
DX: N18.31 Chronic kidney disease, stage 3a (principal); I42.8 Other cardiomyopathies

== ENCOUNTER → 2021-02-08 | Outpatient (CLI) | payer MEDICARE, MEDICAID ==
[2021-01-23 08:52] LABS: CALCIUM 8.8 mg/dL (8.4-10.2); CREATININE, serum 1.49 (0.66-1.25); POTASSIUM 3.4 mmol/L (3.4-5.0)
== END | disposition still patient (30) ==
LOC: COL.LAB → COL.CR → COL.LAB 01-18 08:18 → EDSTATUS 01-18 17:00 → COL.CR 01-21 17:03 → EDSTATUS 01-25 16:34 → COL.CR 01-25 17:04 → COL.LAB 12:00
PROVIDERS: Internal Medicine Cardiovascular Disease
DX: I50.42 Chronic combined systolic (congestive) and diastolic (congestive) heart failure (principal); N18.31 Chronic kidney disease, stage 3a

== ENCOUNTER → 2021-05-01 | Outpatient (CLI) | payer MEDICARE, MEDICAID ==
[2021-05-01 09:11] LABS: INR 2.1 (0.8-3.0); PROTHROMBIN TIME 23.1 SECONDS (9.7-12.8)
[2021-05-01 09:19] LABS: CALCIUM 8.4 mg/dL (8.4-10.2); CREATININE, serum 1.85 (0.66-1.25); MAGNESIUM 2.3 mg/dL (1.6-2.3); POTASSIUM 3.9 mmol/L (3.4-5.0)
== END ==
LOC: COL.LAB 08:41
DX: I42.8 Other cardiomyopathies (principal); Z79.01 Long term (current) use of anticoagulants

== ENCOUNTER 2021-05-12 10:40 | Inpatient (IN) | payer MEDICARE, MEDICAID ==
[~2021-05-12] VITALS: Ht 185.4 cm; Wt 188.7 kg
[~2021-05-12 10:40] MED LIST changes: -ASPIRIN E.C. 8181 MG PO; -LIDODERM 5% PATC1 EA TP; -TYLENOL 500MG500 MG PO
[2021-05-12 11:07] LABS: BASO % 0.4 % (0.0-2.0); EOS % 0.1 % (0-4.0); GRAN # 6.5 (1.4-6.5); HEMATOCRIT 42.2 % (42.0-52.0); HEMOGLOBIN 13.1 g/dl (13.5-18.0); LYMPH # 0.6 (1.2-3.4); LYMPH % 7.3 % (20.0-51.0); MEAN CELL VOLUME 89 fl (80.0-100.0); MEAN CORPUSCULAR HEMOGLOBIN 28 pg (27.0-31.0); MEAN CORPUSCULAR HGB CONC 31 g/dl (33.0-37.0); MEAN PLATELET VOLUME 10.3 fl (7.4-10.4); MONO # 0.6 (0.1-0.6); MONO % 7.9 % (1.7-9.3); PLATELET COUNT 213 K/mm3 (130-400); RED BLOOD COUNT 4.73 M/mm3 (4.20-5.60); REDCELL DISTRIBUTION WIDTH-CV 17.2 % (11.5-14.5)
[2021-05-12 11:18] LABS: ALBUMIN 3.4 gm/dL (3.5-5.0); BILIRUBIN,TOTAL 1.1 mg/dL (0.2-1.2); CALCIUM 8.5 mg/dL (8.4-10.2); CREATININE, serum 2.9 mg/dL (0.72-1.25); POTASSIUM 5.1 mmol/L (3.5-4.5); TOTAL PROTEIN 6.6 gm/dL (6.2-8.1)
[2021-05-12 11:26] LABS: TROPONIN-I 0.18 ng/mL (0.00-0.033)
[2021-05-12 15:05] LABS: COLLECTION METHOD CLEAN CATCH
[2021-05-12 15:21] LABS: MUCOUS Present /lpf; PH 5 (5-8); SQUAMOUS EPITHELIAL None Seen /hpf; URINE APPEARANCE Clear; URINE BACTERIA None Seen /hpf; URINE BILIRUBIN Negative (NEGATIVE); URINE BLOOD Negative (NEGATIVE); URINE COLOR Yellow; URINE GLUCOSE 1+ (NEGATIVE); URINE KETONE Negative (NEGATIVE); URINE LEUKOCYTE ESTERASE Negative (NEGATIVE); URINE NITRATE Negative (NEGATIVE); URINE PROTEIN(semi-quant) Negative (NEGATIVE); URINE RBC 0-2 /hpf; URINE UROBILINOGEN Negative (NEGATIVE)
[2021-05-12 20:15] VITALS: BP 121/36; PULSE 89; TEMP 98.4
[2021-05-12] MEDS ORDERED: TYLENOL 500MG500 MG PO (22:29)
[2021-05-12] MEDS ORDERED: LIDODERM 5% PATC1 EA TP (22:32)
[2021-05-12] MEDS ORDERED: ASPIRIN E.C. 8181 MG PO (22:33)
[2021-05-12] MEDS ORDERED: CLARITIN 1010 MG/TAB PO (22:36)
[2021-05-12 23:27] VITALS: BP 81/60; PULSE 80; TEMP 98.4
[2021-05-13] VITALS (7 sets, daily range): BP systolic 96–116; BP diastolic 60–95; PULSE 80–108; TEMP 97.9–98.8
[2021-05-13 06:57] LABS: BASO % 0.6 % (0.0-2.0); EOS # 0.1 (0.0-0.7); EOS % 1.9 % (0-4.0); GRAN # 4.7 (1.4-6.5); HEMATOCRIT 40.3 % (42.0-52.0); HEMOGLOBIN 12.3 g/dl (13.5-18.0); LYMPH # 0.8 (1.2-3.4); LYMPH % 12.4 % (20.0-51.0); MEAN CELL VOLUME 89 fl (80.0-100.0); MEAN CORPUSCULAR HEMOGLOBIN 27 pg (27.0-31.0); MEAN CORPUSCULAR HGB CONC 31 g/dl (33.0-37.0); MEAN PLATELET VOLUME 10.6 fl (7.4-10.4); MONO # 0.8 (0.1-0.6); MONO % 11.8 % (1.7-9.3); PLATELET COUNT 172 K/mm3 (130-400); RED BLOOD COUNT 4.54 M/mm3 (4.20-5.60); REDCELL DISTRIBUTION WIDTH-CV 17.5 % (11.5-14.5)
[2021-05-13 07:01] LABS: ALBUMIN 3.2 gm/dL (3.5-5.0); CALCIUM 8.4 mg/dL (8.4-10.2); CREATININE, serum 2.64 mg/dL (0.72-1.25); PHOSPHOROUS 4.2 mg/dL (2.3-4.7); POTASSIUM 4.2 mmol/L (3.5-4.5)
[2021-05-14 03:28] VITALS: BP 105/59; PULSE 92; TEMP 98.5
[2021-05-14 06:24] LABS: BASO % 0.3 % (0.0-2.0); EOS # 0.1 (0.0-0.7); EOS % 1.3 % (0-4.0); GRAN # 4.6 (1.4-6.5); GRAN % 73.2 % (42.2-75.2); HEMATOCRIT 40.8 % (42.0-52.0); HEMOGLOBIN 12.5 g/dl (13.5-18.0); LYMPH # 0.9 (1.2-3.4); LYMPH % 13.7 % (20.0-51.0); MEAN CELL VOLUME 88 fl (80.0-100.0); MEAN CORPUSCULAR HEMOGLOBIN 27 pg (27.0-31.0); MEAN CORPUSCULAR HGB CONC 31 g/dl (33.0-37.0); MEAN PLATELET VOLUME 10.5 fl (7.4-10.4); MONO # 0.7 (0.1-0.6); MONO % 11.3 % (1.7-9.3); PLATELET COUNT 193 K/mm3 (130-400); RED BLOOD COUNT 4.63 M/mm3 (4.20-5.60); REDCELL DISTRIBUTION WIDTH-CV 17.4 % (11.5-14.5)
[2021-05-14 06:48] LABS: ALBUMIN 3.2 gm/dL (3.5-5.0); CALCIUM 8.6 mg/dL (8.4-10.2); CREATININE, serum 2.54 mg/dL (0.72-1.25); PHOSPHOROUS 4.4 mg/dL (2.3-4.7); POTASSIUM 4.1 mmol/L (3.5-4.5)
[2021-05-14 07:15] VITALS: BP 107/77; PULSE 92; TEMP 97.8
[2021-05-14 11:44] VITALS: TEMP 97.6
[2021-05-14 12:37] LABS: INR 2.1 (0.8-3.0); PROTHROMBIN TIME 23.4 SECONDS (9.7-12.8)
[2021-05-14 13:06] LABS: TRICYCLIC ANTIDEPRESS URINE NEGATIVE
[2021-05-14 16:00] VITALS: BP 110/89; PULSE 76; TEMP 97.8
[2021-05-14 20:03] LABS: HEMATOCRIT 43.6 % (42.0-52.0); HEMOGLOBIN 13.4 g/dl (13.5-18.0)
[2021-05-14 20:27] VITALS: BP 110/61; PULSE 96; TEMP 98
[2021-05-14 22:48] VITALS: BP 107/54; PULSE 94; TEMP 98
[2021-05-15 02:49] VITALS: BP 103/48; PULSE 95; TEMP 97.5
[2021-05-15 06:49] LABS: BASO % 0.3 % (0.0-2.0); EOS % 0.1 % (0-4.0); GRAN # 6.5 K/mm3 (1.4-6.5); GRAN % 84.4 % (42.2-75.2); HEMATOCRIT 44.2 % (42.0-52.0); HEMOGLOBIN 13.2 g/dl (13.5-18.0); LYMPH # 0.6 K/mm3 (1.2-3.4); LYMPH % 7.1 % (20.0-51.0); MEAN CELL VOLUME 90 fl (80.0-100.0); MEAN CORPUSCULAR HEMOGLOBIN 27 pg (27.0-31.0); MEAN CORPUSCULAR HGB CONC 30 g/dl (33.0-37.0); MEAN PLATELET VOLUME 10.5 fl (7.4-10.4); MONO # 0.6 K/mm3 (0.1-0.6); MONO % 7.8 % (1.7-9.3); PLATELET COUNT 186 K/mm3 (130-400); REDCELL DISTRIBUTION WIDTH-CV 17.6 % (11.5-14.5)
[2021-05-15 07:10] LABS: ALBUMIN 3.3 gm/dL (3.5-5.0); CALCIUM 8.5 mg/dL (8.4-10.2); CREATININE, serum 2.37 mg/dL (0.72-1.25); PHOSPHOROUS 3.5 mg/dL (2.3-4.7); POTASSIUM 3.9 mmol/L (3.5-4.5)
[2021-05-15 07:51] VITALS: BP 106/76; PULSE 92; TEMP 97.5
[2021-05-15 12:03] VITALS: BP 108/83; PULSE 76; TEMP 98.7
[2021-05-15 15:36] VITALS: BP 124/54; PULSE 100; TEMP 97.4
[2021-05-15 18:56] VITALS: BP 108/56; PULSE 96; TEMP 98.5
[2021-05-15 23:39] VITALS: BP 110/59; PULSE 96; TEMP 98
[2021-05-16 04:34] VITALS: BP 128/59; PULSE 79; TEMP 98.5
[2021-05-16 07:26] VITALS: BP 114/73; PULSE 95; TEMP 97.4
[2021-05-16 07:49] LABS: BASO % 0.2 % (0.0-2.0); GRAN # 7.3 K/mm3 (1.4-6.5); GRAN % 75.9 % (42.2-75.2); HEMATOCRIT 47.1 % (42.0-52.0); LYMPH # 1.3 K/mm3 (1.2-3.4); MEAN CELL VOLUME 91 fl (80.0-100.0); MEAN CORPUSCULAR HEMOGLOBIN 27 pg (27.0-31.0); MEAN CORPUSCULAR HGB CONC 30 g/dl (33.0-37.0); MEAN PLATELET VOLUME 10.6 fl (7.4-10.4); MONO # 0.9 K/mm3 (0.1-0.6); MONO % 9.7 % (1.7-9.3); PLATELET COUNT 228 K/mm3 (130-400); RED BLOOD COUNT 5.18 M/mm3 (4.20-5.60); REDCELL DISTRIBUTION WIDTH-CV 17.8 % (11.5-14.5)
[2021-05-16 07:58] LABS: INR 2.2 (0.8-3.0); PROTHROMBIN TIME 25.1 SECONDS (9.7-12.8)
[2021-05-16 08:04] LABS: ALBUMIN 3.4 gm/dL (3.5-5.0); CALCIUM 8.5 mg/dL (8.4-10.2); CREATININE, serum 2.8 mg/dL (0.72-1.25); PHOSPHOROUS 4.5 mg/dL (2.3-4.7); POTASSIUM 4.3 mmol/L (3.5-4.5)
[2021-05-16 12:23] VITALS: BP 101/58; PULSE 96; TEMP 97.6
[2021-05-16 16:00] VITALS: BP 114/53; PULSE 94; TEMP 97.4
[2021-05-16 20:52] VITALS: BP 93/72; PULSE 96; TEMP 97.5
[2021-05-16 23:33] VITALS: BP 103/85; PULSE 93; TEMP 98
[2021-05-17] VITALS (7 sets, daily range): BP systolic 95–123; BP diastolic 49–78; PULSE 95–96; TEMP 97.3–98.3
[2021-05-17 06:42] LABS: BASO % 0.2 % (0.0-2.0); EOS % 0.1 % (0-4.0); GRAN # 6.6 K/mm3 (1.4-6.5); GRAN % 75.2 % (42.2-75.2); HEMATOCRIT 46.3 % (42.0-52.0); HEMOGLOBIN 14.3 g/dl (13.5-18.0); LYMPH # 1.3 K/mm3 (1.2-3.4); LYMPH % 14.3 % (20.0-51.0); MEAN CELL VOLUME 88 fl (80.0-100.0); MEAN CORPUSCULAR HEMOGLOBIN 27 pg (27.0-31.0); MEAN CORPUSCULAR HGB CONC 31 g/dl (33.0-37.0); MEAN PLATELET VOLUME 10.5 fl (7.4-10.4); MONO # 0.9 K/mm3 (0.1-0.6); MONO % 9.9 % (1.7-9.3); PLATELET COUNT 242 K/mm3 (130-400); RED BLOOD COUNT 5.24 M/mm3 (4.20-5.60)
[2021-05-17 06:48] LABS: INR 3.1 (0.8-3.0); PROTHROMBIN TIME 34.9 SECONDS (9.7-12.8)
[2021-05-17 07:03] LABS: ALBUMIN 3.4 gm/dL (3.5-5.0); CALCIUM 8.9 mg/dL (8.4-10.2); CREATININE, serum 3.08 mg/dL (0.72-1.25); PHOSPHOROUS 4.8 mg/dL (2.3-4.7); POTASSIUM 4.3 mmol/L (3.5-4.5)
[2021-05-18] VITALS (254 sets, daily range): BP systolic 92–112; BP diastolic 37–90; PULSE 86–101; TEMP 97.4–99; O2SAT 72–100
[2021-05-18 07:14] LABS: BASO % 0.3 % (0.0-2.0); EOS % 0.4 % (0-4.0); GRAN # 6.8 K/mm3 (1.4-6.5); GRAN % 74.6 % (42.2-75.2); HEMATOCRIT 45.2 % (42.0-52.0); HEMOGLOBIN 13.9 g/dl (13.5-18.0); INR 4.9 (0.8-3.0); LYMPH # 1.3 K/mm3 (1.2-3.4); LYMPH % 14.7 % (20.0-51.0); MEAN CELL VOLUME 89 fl (80.0-100.0); MEAN CORPUSCULAR HEMOGLOBIN 27 pg (27.0-31.0); MEAN CORPUSCULAR HGB CONC 31 g/dl (33.0-37.0); MEAN PLATELET VOLUME 10.6 fl (7.4-10.4); MONO # 0.9 K/mm3 (0.1-0.6); MONO % 9.7 % (1.7-9.3); PLATELET COUNT 225 K/mm3 (130-400); RED BLOOD COUNT 5.11 M/mm3 (4.20-5.60); REDCELL DISTRIBUTION WIDTH-CV 17.8 % (11.5-14.5)
[2021-05-18 07:17] LABS: PROTHROMBIN TIME 55.2 SECONDS (9.7-12.8)
[2021-05-18 07:32] LABS: CALCIUM 9.1 mg/dL (8.4-10.2); CREATININE, serum 3.25 mg/dL (0.72-1.25); POTASSIUM 4.1 mmol/L (3.5-4.5)
[2021-05-19] VITALS (569 sets, daily range): BP systolic 97–132; BP diastolic 49–92; PULSE 100–108; TEMP 97.5–98.7; O2SAT 60–100
[2021-05-19 07:02] LABS: BASO % 0.4 % (0.0-2.0); EOS # 0.1 K/mm3 (0.0-0.7); EOS % 1.5 % (0-4.0); GRAN # 5.6 K/mm3 (1.4-6.5); GRAN % 78.1 % (42.2-75.2); HEMATOCRIT 42.9 % (42.0-52.0); HEMOGLOBIN 13.5 g/dl (13.5-18.0); LYMPH # 0.8 K/mm3 (1.2-3.4); LYMPH % 11.4 % (20.0-51.0); MEAN CELL VOLUME 86 fl (80.0-100.0); MEAN CORPUSCULAR HEMOGLOBIN 27 pg (27.0-31.0); MEAN CORPUSCULAR HGB CONC 32 g/dl (33.0-37.0); MEAN PLATELET VOLUME 10.3 fl (7.4-10.4); MONO # 0.6 K/mm3 (0.1-0.6); MONO % 8.3 % (1.7-9.3); PLATELET COUNT 193 K/mm3 (130-400); RED BLOOD COUNT 4.97 M/mm3 (4.20-5.60); REDCELL DISTRIBUTION WIDTH-CV 17.8 % (11.5-14.5)
[2021-05-19 07:14] LABS: CALCIUM 8.6 mg/dL (8.4-10.2); CREATININE, serum 2.83 mg/dL (0.72-1.25); POTASSIUM 3.2 mmol/L (3.5-4.5)
[2021-05-19 09:44] LABS: INR 5.3 (0.8-3.0); PROTHROMBIN TIME 59.5 SECONDS (9.7-12.8)
[2021-05-19 16:38] LABS: CALCIUM 8.5 mg/dL (8.4-10.2); CREATININE, serum 2.51 mg/dL (0.72-1.25); MAGNESIUM 2.3 mg/dL (1.6-2.6); POTASSIUM 3.5 mmol/L (3.5-4.5)
[2021-05-20] VITALS (192 sets, daily range): BP systolic 99–119; BP diastolic 66–92; PULSE 106–109; TEMP 97.8–98.5; O2SAT 95–100
[2021-05-20 07:10] LABS: HEMATOCRIT 44.3 % (42.0-52.0); HEMOGLOBIN 13.3 g/dl (13.5-18.0); MEAN CORPUSCULAR HEMOGLOBIN 27 pg (27.0-31.0); MEAN CORPUSCULAR HGB CONC 30 g/dl (33.0-37.0); MEAN PLATELET VOLUME 10.6 fl (7.4-10.4); PLATELET COUNT 185 K/mm3 (130-400); RED BLOOD COUNT 4.88 M/mm3 (4.20-5.60); REDCELL DISTRIBUTION WIDTH-CV 18.1 % (11.5-14.5)
[2021-05-20 07:11] LABS: MEAN CELL VOLUME 91 fl (80.0-100.0)
[2021-05-20 07:17] LABS: INR 4.1 (0.8-3.0)
[2021-05-20 07:27] LABS: PROTHROMBIN TIME 46.3 SECONDS (9.7-12.8)
[2021-05-20 07:49] LABS: CALCIUM 8.6 mg/dL (8.4-10.2); CREATININE, serum 2.25 mg/dL (0.72-1.25); MAGNESIUM 2.2 mg/dL (1.6-2.6)
[2021-05-20 16:06] LABS: CALCIUM 8.4 mg/dL (8.4-10.2); CREATININE, serum 2.31 mg/dL (0.72-1.25); POTASSIUM 3.4 mmol/L (3.5-4.5)
[2021-05-21] VITALS (401 sets, daily range): BP systolic 92–113; BP diastolic 76–87; PULSE 105–109; TEMP 97.5–98.8; O2SAT 94–100
[2021-05-21 05:58] LABS: HEMATOCRIT 42.3 % (42.0-52.0); MEAN CELL VOLUME 88 fl (80.0-100.0); MEAN CORPUSCULAR HEMOGLOBIN 27 pg (27.0-31.0); MEAN CORPUSCULAR HGB CONC 31 g/dl (33.0-37.0); MEAN PLATELET VOLUME 9.8 fl (7.4-10.4); PLATELET COUNT 176 K/mm3 (130-400); RED BLOOD COUNT 4.81 M/mm3 (4.20-5.60); REDCELL DISTRIBUTION WIDTH-CV 18.2 % (11.5-14.5)
[2021-05-21 06:04] LABS: INR 3.2 (0.8-3.0)
[2021-05-21 06:27] LABS: CALCIUM 8.6 mg/dL (8.4-10.2); CREATININE, serum 1.98 mg/dL (0.72-1.25); POTASSIUM 3.1 mmol/L (3.5-4.5)
[2021-05-21 12:36] LABS: MAGNESIUM 2.1 mg/dL (1.6-2.3)
[2021-05-22] VITALS (670 sets, daily range): BP systolic 100–131; BP diastolic 71–102; PULSE 89–107; TEMP 97–98.3; O2SAT 88–100
[2021-05-22 05:20] LABS: BASO % 0.5 % (0.0-2.0); EOS # 0.1 K/mm3 (0.0-0.7); EOS % 1.1 % (0-4.0); GRAN # 6.6 K/mm3 (1.4-6.5); GRAN % 79.5 % (42.2-75.2); HEMATOCRIT 44.2 % (42.0-52.0); HEMOGLOBIN 13.3 g/dl (13.5-18.0); LYMPH # 0.8 K/mm3 (1.2-3.4); LYMPH % 10.1 % (20.0-51.0); MEAN CELL VOLUME 90 fl (80.0-100.0); MEAN CORPUSCULAR HEMOGLOBIN 27 pg (27.0-31.0); MEAN CORPUSCULAR HGB CONC 30 g/dl (33.0-37.0); MEAN PLATELET VOLUME 10.1 fl (7.4-10.4); MONO # 0.6 K/mm3 (0.1-0.6); MONO % 7.5 % (1.7-9.3); PLATELET COUNT 169 K/mm3 (130-400); RED BLOOD COUNT 4.89 M/mm3 (4.20-5.60); REDCELL DISTRIBUTION WIDTH-CV 18.1 % (11.5-14.5)
[2021-05-22 05:36] LABS: CALCIUM 8.8 mg/dL (8.4-10.2); CREATININE, serum 1.97 mg/dL (0.72-1.25); MAGNESIUM 2.1 mg/dL (1.6-2.6); POTASSIUM 3.5 mmol/L (3.5-4.5)
[2021-05-22 09:34] LABS: INR 2.6 (0.8-3.0); PROTHROMBIN TIME 28.8 SECONDS (9.7-12.8)
[2021-05-23] VITALS (335 sets, daily range): BP systolic 97–129; BP diastolic 67–79; PULSE 99–106; TEMP 97.8–99; O2SAT 95–100
[2021-05-23 05:11] LABS: BASO % 0.4 % (0.0-2.0); EOS # 0.1 K/mm3 (0.0-0.7); EOS % 1.4 % (0-4.0); GRAN # 5.3 K/mm3 (1.4-6.5); GRAN % 73.3 % (42.2-75.2); HEMATOCRIT 44.5 % (42.0-52.0); HEMOGLOBIN 13.4 g/dl (13.5-18.0); LYMPH % 14.4 % (20.0-51.0); MEAN CELL VOLUME 89 fl (80.0-100.0); MEAN CORPUSCULAR HEMOGLOBIN 27 pg (27.0-31.0); MEAN CORPUSCULAR HGB CONC 30 g/dl (33.0-37.0); MEAN PLATELET VOLUME 10.4 fl (7.4-10.4); MONO # 0.7 K/mm3 (0.1-0.6); MONO % 10.2 % (1.7-9.3); PLATELET COUNT 167 K/mm3 (130-400); RED BLOOD COUNT 4.98 M/mm3 (4.20-5.60)
[2021-05-23 05:23] LABS: INR 2.5 (0.8-3.0); PROTHROMBIN TIME 27.5 SECONDS (9.7-12.8)
[2021-05-23 05:26] LABS: CREATININE, serum 2.18 mg/dL (0.72-1.25); POTASSIUM 4.1 mmol/L (3.5-4.5)
== END 2021-05-23 18:10 | disposition short-term general hospital (02) | DRG 291 ==
LOC: COL.ER 10:40 → SURG 15:41 → MEDICAL 05-13 16:01 → SURG 05-13 16:01 → ICU 05-18 15:28
PROVIDERS: Internal Medicine; Physician Assistant; Student in an Organized Health Care Education/Training Program; ADMIT Internal Medicine Nephrology
DX: I13.0 Hypertensive heart and chronic kidney disease with heart failure and stage 1 through stage 4 chronic kidney disease, or unspecified chronic kidney disease (principal); I50.43 Acute on chronic combined systolic (congestive) and diastolic (congestive) heart failure; N17.9 Acute kidney failure, unspecified; E87.2 Acidosis; F32.A Depression, unspecified; M54.50 Low back pain, unspecified; G89.29 Other chronic pain; I42.8 Other cardiomyopathies; E66.01 Morbid (severe) obesity due to excess calories; I27.20 Pulmonary hypertension, unspecified; N18.31 Chronic kidney disease, stage 3a; E11.22 Type 2 diabetes mellitus with diabetic chronic kidney disease; M25.561 Pain in right knee; M79.651 Pain in right thigh; I08.1 Rheumatic disorders of both mitral and tricuspid valves; M10.9 Gout, unspecified; E87.6 Hypokalemia; T50.2X5A Adverse effect of carbonic-anhydrase inhibitors, benzothiadiazides and other diuretics, initial encounter; R79.1 Abnormal coagulation profile; R09.02 Hypoxemia; Z20.822 Contact with and (suspected) exposure to COVID-19; Z86.718 Personal history of other venous thrombosis and embolism; Z79.01 Long term (current) use of anticoagulants; Z95.810 Presence of automatic (implantable) cardiac defibrillator
CPT/HCPCS: OP; 99222; 99232-AI; 99233-AI; 99239; A4314; J1160; J1250; J1790; J3480; J7512